=== PATIENT | male | born 1965 | race Caucasian/White ===

== ENCOUNTER 2017-03-12 14:29 | Emergency (ER) | payer OTHER, BC ==
[~2017-03-12] VITALS: Ht 172.7 cm; Wt 95.2 kg
[~2017-03-12 14:29] MED LIST: CETI10TA84 PO; FLUT0.0529 INTNAS; LISI-461 PO
[2017-03-12 14:31] VITALS: TEMP 36.9; Ht 172.7 cm; Wt 95.2 kg
[2017-03-12] MEDS ORDERED: DIPHTHERIA/TETANUS/PERTUSSIS 0.5 ML SYR/VIAL IM. ONE (15:00)
[2017-03-12] MEDS ORDERED: FLNIN/ NAE (15:20)
[2017-03-12] MEDS ORDERED: PANT20TA PO (15:20)
[2017-03-12] MEDS ORDERED: LISI-461 PO (15:20)
--- NOTE | 2017-03-12 15:38 | DIAGNOSTIC IMAGING REPORT ---
L RIBS UNILATERAL WITH PA CHEST CLINICAL HISTORY: Left inferior/posterior rib pain s/p fall trauma. Pain. COMPARISON STUDY: None FINDINGS: Negative study IMPRESSION: Negative study. No evidence pneumothorax. The above report was generated using voice recognition software. It may contain grammatical, syntax or spelling errors. Electronically signed by: Sonny Arriola M.D. 03/12/2017 3:37 PM Dictated Date/Time: 03/12/2017 3:28 PM
--- NOTE | 2017-03-12 15:42 | DIAGNOSTIC IMAGING REPORT ---
LEFT ELBOW 3 VIEWS CLINICAL HISTORY: Fall with left elbow pain. FINDINGS: 3 views of the left elbow are obtained. No prior studies are available for comparison at the time of dictation. The skeletal structures are well mineralized. No fracture is seen. The joint spaces are well-maintained. No joint effusion is identified. The overlying soft tissues are within normal limits. IMPRESSION: No acute bony abnormality is seen in the left elbow. Electronically signed by: Rudy Gaffney M.D. 03/12/2017 3:40 PM Dictated Date/Time: 03/12/2017 3:34 PM
--- NOTE | 2017-03-12 15:43 | DIAGNOSTIC IMAGING REPORT ---
LEFT TIBIA AND FIBULA 2 VIEWS CLINICAL HISTORY: Fall with left leg pain. FINDINGS: AP and lateral views of the left tibia and fibula are obtained. No prior studies are available for comparison at the time of dictation. The skeletal structures are well mineralized. There is no radiographic evidence of left tibial or fibular fracture. The knee and ankle joints are grossly maintained. Mild pretibial soft tissue swelling is noted. IMPRESSION: Mild pretibial soft tissue swelling with no radiographic evidence of left tibial or fibular fracture. Electronically signed by: Rudy Gaffney M.D. 03/12/2017 3:41 PM Dictated Date/Time: 03/12/2017 3:40 PM
--- NOTE | 2017-03-12 15:58 | EMERGENCY ROOM VISIT NOTE ---
History First contact with patient: 14:38 Chief Complaint: FALL Stated Complaint: FELL 3 FEET, ELBOW, RIBS, LEG-WORK RELATED INJURY History of Present Illness The patient is a 51 year old male who presents to the Emergency Room via private vehicle accompanied by 2 males with complaints of "fell 3 feet, elbow, ribs, leg, work-related injury". The patient states that earlier today he was on a scaffolding, when he lost his balance, and fell approximately 3 feet landing on the left elbow, left back portion and the left roman. He denies loss of consciousness or striking his head. There is no shortness of breath or chest pain. There is no abdominal pain. He notes pain in the left elbow, left posterior ribs and left roman. His tetanus is not up-to-date. Review of Systems A complete 6-point Review of Systems was discussed with the patient, with pertinent positives and negatives listed in the History of Present Illness. All remaining Review of Systems questions can be considered negative unless otherwise specified. Past Medical/Surgical History HTN Family History Diabetes, heart disease, high blood pressure, cancer. Social History Smoking Status: Former Smoker Patient lives locally. Current/Historical Medications Scheduled Lisinopril (Lisinopril), 10 MG PO DAILY Pantoprazole Sodium (Protonix), 20 MG PO DAILY Scheduled PRN Fluticasone Propionate (Fluticasone Propionate), 2 SPRAYS JOEL DAILY PRN for Allergy Symptoms Physical Exam Vital Signs Date Time Temp Pulse Resp B/P (MAP) Pulse Ox O2 Delivery O2 Flow Rate FiO2 03/12/17 16:23 83 161/99 98 03/12/17 14:31 36.9 95 20 150/100 97 Room Air Physical Exam VITAL SIGNS - Vital signs and nursing notes were reviewed. Stable. GENERAL - 51-year-old male appearing his stated age. Communicates well with provider and answers questions appropriately. SKIN - Gross examination of the entire body surface demonstrates no deep lacerations. Numerous superficial abrasions to the left elbow, and left roman. There is also a small one on the left posterior rib region. No open fracture. HEAD - Normocephalic, Atraumatic. No Burnham's Sign or Raccoon's Eyes. No depressed skull fractures palpable. EYES - PERRL with EOMI bilaterally. Without subconjunctival hemorrhage. No hyphema. EARS - No deformities of external structures noted on gross examination bilaterally. No hemotympanum present. No tympanic perforation noted. Handle of malleus, umbo, cone of light, pars tensa/flaccid all easily visualized. NOSE - Midline and without cyanosis. No epistaxis or clear watery discharge noted. Septum midline without deviation. No septal hematoma noted. No overlying ecchymosis noted. MOUTH/OROPHARYNX - Without perioral cyanosis. Tongue midline with equal elevation of palate bilaterally. No blood noted in the oropharynx. No tonsillar hypertrophy, erythema, or exudates noted. No dental fractures noted. NECK - no tenderness to palpation over the cervical spinous processes. No cervical paraspinal muscle tenderness noted. LUNGS - Chest wall symmetric without accessory muscle use, intercostals retractions, or central cyanosis. No flail chest or depressed fractures noted. No paradoxical chest wall movements noted. Normal vesicular breath sounds CTA B/ L. No wheezes, rales, or rhonchi appreciated. CARDIAC - RRR with S1/S2. No murmur, rubs, or gallops appreciated. ABDOMEN - Abdominal contour normal and without pulsations or visible masses. BS normoactive all four quadrants. [No tenderness, palpable masses, hepatosplenomegaly, or ascites noted. Tenderness to the left posterior ribs. EXTREMITIES - No gross deformities noted of the extremities. There is tenderness to palpation left elbow region as well as a left anterior roman. + +5/ 5 strength noted in UE/LE bilaterally. NEUROLOGIC - Cranial nerves II through XII grossly intact. Sensory intact to light touch throughout. Medical Decision & Procedures ER Provider Diagnostic Interpretation: LEFT TIBIA AND FIBULA 2 VIEWS CLINICAL HISTORY: Fall with left leg pain. FINDINGS: AP and lateral views of the left tibia and fibula are obtained. No prior studies are available for comparison at the time of dictation. The skeletal structures are well mineralized. There is no radiographic evidence of left tibial or fibular fracture. The knee and ankle joints are grossly maintained. Mild pretibial soft tissue swelling is noted. IMPRESSION: Mild pretibial soft tissue swelling with no radiographic evidence of left tibial or fibular fracture. Electronically signed by: Rudy Gaffney M.D. 03/12/2017 3:41 PM Dictated Date/Time: 03/12/2017 3:40 PM L RIBS UNILATERAL WITH PA CHEST CLINICAL HISTORY: Left inferior/posterior rib pain s/p fall trauma. Pain. COMPARISON STUDY: None FINDINGS: Negative study IMPRESSION: Negative study. No evidence pneumothorax. The above report was generated using voice recognition software. It may contain grammatical, syntax or spelling errors. Electronically signed by: Sonny Arriola M.D. 03/12/2017 3:37 PM Dictated Date/Time: 03/12/2017 3:28 PM LEFT ELBOW 3 VIEWS CLINICAL HISTORY: Fall with left elbow pain. FINDINGS: 3 views of the left elbow are obtained. No prior studies are available for comparison at the time of dictation. The skeletal structures are well mineralized. No fracture is seen. The joint spaces are well-maintained. No joint effusion is identified. The overlying soft tissues are within normal limits. IMPRESSION: No acute bony abnormality is seen in the left elbow. Electronically signed by: Rudy Gaffney M.D. 03/12/2017 3:40 PM Dictated Date/Time: 03/12/2017 3:34 PM Medications Administered Medications (Trade) Dose Ordered Sig/Val Route Start Time Stop Time Status Last Admin Dose Admin Diphtheria/ Pertussis/Tetanus Vacc (Adacel Inj) 0.5 ml ONCE ONCE IM. 03/12/17 15:00 03/12/17 15:51 DC 03/12/17 15:21 0.5 ML Medical Decision Patient was seen and evaluated as above. He presents to us today status post fall. He is well on exam. Vital signs stable. He is hypertensive. X-rays were obtained. No acute process as noted above. Regions were bandaged. The left elbow does have a subcentimeter laceration, but it is superficial, and I believe that in this region cleansing with bandages more appropriate than a suture. He was educated upon worrisome symptoms which to return. Benefits versus risk of obtaining CT scan of his abdomen was discussed regarding the pain in the left posterior ribs. He notes at rest there is no pain. I informed her that this would worsen he is to return for CT scan. He is to follow with a workman's comp individual. He was given an arm sling. He was educated upon management, educated upon worrisome symptoms which to return, had questions prior to discharge, and was discharged home in good condition. In the evaluation and treatment of this patient, the following differential diagnoses were considered: Forearm Contusion, Radial Head Fracture, Radial Styloid Process Fracture, Ulnar Styloid Process Fracture, Radius Fracture, Ulnar Fracture, Tennis Elbow, Golfer's Elbow, or Elbow Fracture, contusion and multiple sites, laceration, intra-abdominal etiology, rib fracture, pneumothorax , hemothorax, roman fracture, contusion. Impression Primary Impression: Fall Additional Impression: Contusion of multiple sites Departure Information Dispostion Home / Self-Care Condition GOOD Referrals Benito Colin MD (PCP) Patient Instructions My [facility] Additional Instructions You have been treated in the Emergency Department for a Fall. Xrays are negative for fracture. For pain control, you can use the following [id number] medicines (if >12 yo): - Regular strength (325mg/tab) Tylenol (acetaminophen) 2 tabs every 4-6 hours as needed. Do not exceed 12 tablets in a 24 hour period. Avoid taking more than 3 grams (3000 mg) of Tylenol per day. This includes any other sources of acetaminophen you may take on a regular basis. - Regular strength (200 mg/tab) Advil (ibuprofen) 1-2 tabs every 4-6 hours as needed. Do not exceed a dose of 3200 mg per day. You should relax in a quiet, dark place for the rest of the day. Avoid any possible triggers including: cigarette smoke, caffeine, nicotine, chocolate, wine, beer, loud noises or music, or bright lights. You should schedule a follow-up appointment with workman's comp Sling until follow up. Remove periodically to use shoulder. Return to the Emergency Department if your current symptoms worsen despite treatment course outlined above, or if you develop any of the following symptoms : intractable pain despite aforementioned treatment course, visual disturbances , loss of vision, unilateral weakness or facial drooping, slurring of speech, loss of coordination, or loss of consciousness. Problem Qualifiers
[2017-03-12 16:23] VITALS: BP 161/99; PULSE 83; O2SAT 98
== END 2017-03-12 16:25 | disposition home or self-care (01) ==
LOC: C.EDB 14:30 → C.EDD 16:25
DX: T14.8XXA Other injury of unspecified body region, initial encounter (principal); W12.XXXA Fall on and from scaffolding, initial encounter; Y92.89 Other specified places as the place of occurrence of the external cause; Y99.0 Civilian activity done for income or pay; I10 Essential (primary) hypertension; Z83.3 Family history of diabetes mellitus; Z82.49 Family history of ischemic heart disease and other diseases of the circulatory system; Z80.9 Family history of malignant neoplasm, unspecified; Z87.891 Personal history of nicotine dependence; Z79.899 Other long term (current) drug therapy